=== PATIENT | male | born 1990 | race Caucasian/White ===

== ENCOUNTER 2021-05-07 12:25 | Emergency (ER) | payer OTHER, SELFPAY ==
[2021-05-07 12:38] VITALS: BP 125/82; PULSE 85; RESP 16; TEMP 36.7; O2SAT 98; BMI 34.0
--- NOTE | 2021-05-07 12:56 | XR_ITS ---
PROCEDURE: XR ABDOMEN MIN 2V CLINICAL INDICATION: low abd pain 2 days COMPARISON: No exams were available for comparison FINDINGS: There is a mild amount of retained colonic feces. No intestinal obstruction or free air. No acute bony anomalies. No renal or ureteral calculi evident. IMPRESSION: Mild amount of retained colonic feces otherwise negative Dictated by: Min Cho MD 05/07/2021 13:29 Min Cho MD in [place] 05/07/2021 13:29
--- NOTE | 2021-05-07 12:57 | [facility].EDABDPAI ---
ED Disposition Clinical Impression: Abdominal pain Qualifiers: Abdominal location: generalized Qualified Code(s): R10.84 - Generalized abdominal pain Disposition: Home, Self-Care Condition on Discharge: Good Instructions: DI for Acute Abdominal Pain Additional Instructions: follow up PCP, return for worse or any concerns Prescriptions: Dicyclomine HCl [Bentyl 10mg capsule] 10 mg PO TID PRN #15 cap PRN Reason: Cramping Transmission Status: Received by [id number] Referrals: Ruba Alvarado MD [Primary Care Provider] - Forms: Work/School Release Time of Disposition: 13:35 - Critical Care Critical Care Time: No Attestation: On , the high probability of a clinically significant, sudden or life threatening deterioration of the following system(s) required my full and direct attention, intervention and personal management. The time I documented below is in addition to time spent performing reported procedures but includes the following listed in this critical care notation. Medical Decision Making - Medical Records Medical records reviewed: Yes: I reviewed the patient's medical records. - Filipe Inquiry Pt receiving controlled substance: No Vital Signs: 05/07/21 12:38 05/07/21 14:19 Temperature 98.1 F 98.1 F Temperature Source Oral Pulse Rate 80 Pulse Rate [Radial] 85 Respiratory Rate 16 16 Blood Pressure 121/80 Blood Pressure [Right Arm] 125/82 Blood Pressure Mean [Right Arm] 96 Blood Pressure Position [Right Arm] Sitting 02 Sat by Pulse Oximetry 98 Oxygen Delivery Method Room Air Room Air - Lab Data Lab Results 05/07/21 13:11: WBC 10.5, RBC 4.85, Hgb 15.6, Hct 45.4, MCV 93.6, MCH 32.2 H, MCHC 34.3, RDW 13.0, Plt Count 215, MPV 8.5, Neut % (Auto) 71.9, Lymph % (Auto) 18.3, [place] % (Auto) 7.5, Eos % (Auto) 1.4, Baso % (Auto) 0.9, Neut # (Auto) 7.6, Lymph # (Auto) 1.9, [place] # (Auto) 0.8, Eos # (Auto) 0.2, Baso # (Auto) 0.1 05/07/21 13:11: Sodium 138, Potassium 4.1, Chloride 103, Carbon Dioxide 28, Anion Gap 11.1, BUN 13, Creatinine 1.00, Estimated Creat Clear 190, Estimated GFR 87, Est GFR ( Amer) 105, Glucose 88, Calcium 8.9, Total Bilirubin 0.9, AST 35, ALT 50, Alkaline Phosphatase 75, Total Protein 7.3, Albumin 4.3, Globulin 3.0, Albumin/Globulin Ratio 1.4 Result diagrams: 05/07/21 13:11 05/07/21 13:11 Medical Decision Narrative: reeval, stable exAM, abd soft, ok with plan to rx and f/u pcp Abdominal Pain HPI - General Chief Complaint: Abdominal Pain Stated Complaint: abd pains Time Seen by Provider: 05/07/21 12:57 Mode of Arrival: Ambulatory Limitations: No Limitations Description of Symptoms (Recalled from ER Triage Doc. by RN): to ed per pvt car with c/o lower abd pain starting lastnight. denies any nausea, vomiting, diarrhea, fever or sick contacts. denies any injury. - History of Present Illness MD complaint: abdominal pain Onset (ago): day(s) Consistency: constant Location: suprapubic Severity: moderate Quality: dull Radiation: none Relieving factors: nothing Exacerbating factors: nothing Associated symptoms: denies other symptoms - Related Data Previous Rx's Medication Instructions Recorded benzonatate 100 mg capsule 100 mg PO TID PRN #14 cap 06/20/18 Dicyclomine HCl [Bentyl 10mg 10 mg PO TID PRN #15 cap 05/07/21 capsule] Allergies Allergy/AdvReac Type Severity Reaction Status Date / Time No Known Allergies Allergy Verified 06/20/18 15:54 [facility] History - Hepatitis A Screen Drug use history?: No High risk sexual behaviors?: No History of sexually transmitted infection?: No Currently employed?: No Childcare worker?: No Do you have indoor plumbing?: Yes Do you have electricity?: Yes Attestation statement:: This patient has been screened for Hepatitis A risk factors. Other Surgeries: Yes: No Previous Surgery - Social History Smoking Status: Never smoker Alcohol Intake: never Alcohol Intake Frequency:: 0-2 drin
[2021-05-07 13:20] LABS: Basophils # 0.1 K/mm3 (0-0.2); Basophils % 0.9 % (0.1-2.0); Eosinophils # 0.2 K/mm3 (0.0-0.4); Eosinophils % 1.4 % (0.1-12.0); Hematocrit 45.4 % (42.0-52.0); Hemoglobin 15.6 g/dL (14.1-18.0); Lymphocytes # 1.9 K/mm3 (0.7-4.5); Lymphocytes % 18.3 % (10-50); Mean Corpuscular HGB Conc 34.3 g/dL (31.8-35.4); Mean Corpuscular Hemoglobin 32.2 pg (27.0-31.2); Mean Corpuscular Volume 93.6 fl (80-94); Mean Platelet Volume 8.5 fl (7.4-10.4); Monocytes # 0.8 K/mm3 (0.1-1.0); Monocytes % 7.5 % (1.7-9.3); Neutrophils # 7.6 K/mm3 (1.8-7.8); Neutrophils % 71.9 % (37.0-80.0); Platelet Count 215 K/mm3 (142-424); Red Blood Count 4.85 M/mm3 (4.60-6.20); White Blood Count 10.5 K/mm3 (4.8-10.8)
[2021-05-07 13:28] LABS: Alanine Aminotransferase 50 U/L (12-78); Albumin Level 4.3 g/dl (3.5-5.0); Albumin/Globulin Ratio 1.4 (1.1-1.8); Alkaline Phosphatase 75 U/L (38-126); Anion Gap 11.1 mEq/L (5-15); Aspartate Amino Transferase 35 U/L (17-59); Bilirubin,Total 0.9 mg/dl (0.2-1.3); Blood Urea Nitrogen 13 mg/dl (9-20); Calcium 8.9 mg/dl (8.4-10.2); Carbon Dioxide 28 mmol/L (22.0-30.0); Chloride 103 mmol/L (98-107); Creatinine Clearance Estimated 190 mL/min (50-200); Estimated Glomerular Filt Rate 87 ml/min (>60); GFR (African American) 105 ML/MIN (>60); Glucose 88 mg/dl (74-100); Potassium 4.1 mmoL/L (3.5-5.1); Sodium 138 mmol/L (136-145); Total Protein,Serum 7.3 g/dl (6.3-8.2)
[2021-05-07 14:19] VITALS: BP 121/80; PULSE 80; RESP 16; TEMP 36.7; O2SAT 99
== END 2021-05-07 14:21 | disposition home or self-care (01) ==
PROVIDERS: Emergency Provider Emergency Medicine; PCP Family Medicine
DX: R10.84 Generalized abdominal pain (principal)
CPT/HCPCS: 74019; 80053; 85025; 99282